=== PATIENT | female | born 1950 | race Native Hawaiian/Other Pacific Islander ===

== ENCOUNTER 2020-01-31 12:51 | Outpatient (CLI) | payer OTHER, MEDICARE ==
[2020-01-31 16:07] LABS: PLATELET COUNT 370 K/uL (152-353)
[2020-01-31 18:13] LABS: POTASSIUM 3.9 mmol/L (3.6-5.2)
== END 2020-01-31 21:08 | disposition home or self-care (01) ==
LOC: LAB 12:51
PROVIDERS: ATTEND Nurse Practitioner Family
DX: Z00.00 Encounter for general adult medical examination without abnormal findings (principal); J02.9 Acute pharyngitis, unspecified; I10 Essential (primary) hypertension; F41.8 Other specified anxiety disorders; E03.8 Other specified hypothyroidism; E78.49 Other hyperlipidemia; Z79.899 Other long term (current) drug therapy; R53.83 Other fatigue; E53.8 Deficiency of other specified B group vitamins; E55.9 Vitamin D deficiency, unspecified
CPT/HCPCS: 80053; 80061; 82306; 82607; 83036; 84439; 84443; 85027

== ENCOUNTER 2020-03-01 11:49 | Outpatient (CLI) | payer OTHER, MEDICARE | END 2020-03-01 19:02 | disposition home or self-care (01) | LOC: LAB 11:49 | PROVIDERS: ATTEND Nurse Practitioner Family | DX: J06.9 Acute upper respiratory infection, unspecified (principal); Z20.828 Contact with and (suspected) exposure to other viral communicable diseases | CPT/HCPCS: 87635; G2023; U0003 ==

== ENCOUNTER 2020-03-12 12:43 | Outpatient (CLI) | payer OTHER, MEDICARE | END 2020-03-12 23:23 | disposition home or self-care (01) | LOC: LAB 12:43 | PROVIDERS: ATTEND Nurse Practitioner Family | DX: Z11.59 Encounter for screening for other viral diseases (principal) | CPT/HCPCS: 87635; G2023; U0003 ==